=== PATIENT | male | born 1940 | race African-American/Black ===

== ENCOUNTER 2018-04-19 07:35 | Inpatient (IN) | payer MEDICARE, MEDICAID ==
[~2018-04-19] VITALS: Ht 180.3 cm; Wt 94.8 kg
[2018-04-19 07:35] VITALS: BP 142/69
[~2018-04-19 07:35] MED LIST: ALBUTEROL SULF8.5 GM INH; CALCIUM500 M1 PO; LACTULOSE10 GM/15 M PO; LASIX40 MG PO; LEVAQUIN750 MG PO; METOPROLOL TART25 MG PO; NEURONTIN300 MG PO; POTASSIUM CHLO20 ME1 PO; PROTONIX40 MG PO; REGLAN5 MG PO; SIMVASTATIN20 MG PO; TRAMADOL HCL50 MG PO; ZESTRIL5 MG PO
--- NOTE | 2018-04-19 07:35 | NUR ---
ED Nurse Note: brought in by RA27 from home due to altered mental status s/p seizure this mroning. Unwitnessed seizure and no family at the bedside. EMS and pt unable to provide further information regarding pt's past medical history and pt's current home medication. Pt is A/Ox1 to name. RA 97%. BS of 126. Seizure precaution applied. No s/s of distress.
[2018-04-19] MEDS ORDERED: Sodium Chloride 500ML 500 ML IV ONE (07:52)
[2018-04-19] MEDS ORDERED: levETIRAcetam 500mg/NS100ml 100 ML IVPB ONE (08:00)
--- NOTE | 2018-04-19 08:15 | NUR ---
ED Nurse Note: blood and urine sent down to the lab.
--- NOTE | 2018-04-19 08:18 | Emergency Room Report ---
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 It is unclear who the patient lives with I do not have any list of medications Patient here is confused and cannot provide medical history Paramedics reported seizure activity this morning Some confusion and patient was brought to the emergency room from home Here the patient denies any chest pain denies any fevers cannot tell me when the last time was when he had a seizure Allergies: Coded Allergies: No Known Allergies (Unverified , 01/09/12) Patient History Limited by: medical condition Past Medical History: see triage record Pertinent Family History: unable to obtain Reviewed Nursing Documentation: PMH: Agreed; PSxH: Agreed Nursing Documentation-PMH Past Medical History: No History, Except For Hx Cardiac Problems: Yes Hx Hypertension: Yes Hx COPD: Yes - emphysema Hx Cancer: No Hx Gastrointestinal Problems: No Hx Cerebrovascular Accident: Yes Review of Systems All Other Systems: limited - Other than the ones mentioned in the history of present illness all others are reviewed however they do stay limited due to the patient's mental status Physical Exam Vital Signs Date Time Temp Pulse Resp B/P (MAP) Pulse Ox O2 Delivery O2 Flow Rate FiO2 04/19/18 07:29 97.9 90 16 150/92 96 Room Air Sp02 EP Interpretation: reviewed, normal General Appearance: no apparent distress Head: normocephalic, atraumatic Eyes: bilateral eye PERRL, bilateral eye EOMI ENT: hearing grossly normal, normal pharynx Neck: supple Respiratory: lungs clear Cardiovascular #1: regular rate, rhythm, no edema Gastrointestinal: non tender, soft Musculoskeletal: normal inspection - Patient moves all extremities without focal deficit Neurologic: responsive - 2 verbal and physical stimuli, patient is confused, does not know why he is here, cannot provide medical history Skin: normal color, no rash Lymphatic: no adenopathy Medical Decision Making Diagnostic Impression: Primary Impression: Seizure disorder Additional Impression: Encephalopathy ER Course Multiple differentials considered Given the patient's prolonged postictal state and [place] medical history CT imaging was also obtained patient's blood work reveals some abnormal electrolytes patient is further hydrated Provided with antiepileptic medication and requires further inpatient care Labs Test 04/19/18 07:40 White Blood Count 4.3 K/UL (4.8-10.8) Red Blood Count 4.26 M/UL (4.70-6.10) Hemoglobin 13.3 G/DL (14.2-18.0) Hematocrit 39.8 % (42.0-52.0) Mean Corpuscular Volume 94 FL (80-99) Mean Corpuscular Hemoglobin 31.4 PG (27.0-31.0) Mean Corpuscular Hemoglobin Concent 33.5 G/DL (32.0-36.0) Red Cell Distribution Width 11.6 % (11.6-14.8) Platelet Count 173 K/UL (150-450) Mean Platelet Volume 6.9 FL (6.5-10.1) Neutrophils (%) (Auto) 49.3 % (45.0-75.0) Lymphocytes (%) (Auto) 40.8 % (20.0-45.0) Monocytes (%) (Auto) 6.6 % (1.0-10.0) Eosinophils (%) (Auto) 0.5 % (0.0-3.0) Basophils (%) (Auto) 2.8 % (0.0-2.0) Sodium Level 145 MMOL/L (136-145) Potassium Level 3.3 MMOL/L (3.5-5.1) Chloride Level 115 MMOL/L (98-107) Carbon Dioxide Level 18 MMOL/L (21-32) Anion Gap 12 mmol/L (5-15) Blood Urea Nitrogen 7 mg/dL (7-18) Creatinine 0.8 MG/DL (0.55-1.30) Estimat Glomerular Filtration Rate mL/min (>60) Glucose Level 97 MG/DL (74-106) Calcium Level 6.9 MG/DL (8.5-10.1) Total Bilirubin 0.5 MG/DL (0.2-1.0) Aspartate Amino Transf (AST/SGOT) 54 U/L (15-37) Alanine Aminotransferase (ALT/SGPT) 36 U/L (12-78) Alkaline Phosphatase 40 U/L (46-116) Total Creatine Kinase 229 U/L (26-308) Creatine Kinase MB 2.4 NG/ML (0.0-3.6) Creatine Kinase MB Relative Index 1.0 Troponin I 0.027 ng/mL (0.000-0.056) Total Protein 5.5 G/DL (6.4-8.2) Albumin 2.6 G/DL (3.4-5.0) Globulin 2.9 g/dL Albumin/Globulin Ratio 0.9 (1.0-2.7) Lipase 118 U/L (73-393) Valproic Acid (Depakene) Level < 3 MCG/ML (50-100) Rhythm Strip Diag. Results EP Interpretation: yes Rate: 80 Rhythm: NSR, no PVC's, no ectopy Chest X-Ray Diagnostic Results Chest X-Ray Diagnostic Results : Chest X-Ray Ordered: Yes # of Views/Limited/Complete: 1 View Indication: Chest Pain EP Interpretation: Yes Interpretation: no consolidation, no effusion, no pneumothorax, no acute cardiopulmonary disease - sternotomy wires Impression: No acute disease Electronically Signed by: Rickie Roberts DO CT/MRI/US Diagnostic Results CT/MRI/US Diagnostic Results : Impression CT head:IMPRESSION: 1. No evidence of intracranial hemorrhage. No mass effect or midline shift. 2. Remote left frontoparietal infarct. 3. Mild periventricular white matter hypodensities likely related to chronic small vessel disease changes. Last Vital Signs Date Time Temp Pulse Resp B/P (MAP) Pulse Ox O2 Delivery O2 Flow Rate FiO2 04/19/18 07:35 97.9 89 20 142/69 97 Room Air Status: improved Disposition: ADMITTED INPATIENT Condition: Serious Referrals: NOT CHOSEN IPA/,REFERRING (PCP) Rickie Roberts DO Apr 19, 2018 08:18
[2018-04-19 08:19] LABS: BASOPHILS % (AUTO) 2.8 % (0.0-2.0); EOSINOPHILS % (AUTO) 0.5 % (0.0-3.0); HEMATOCRIT 39.8 % (42.0-52.0); HEMOGLOBIN 13.3 G/DL (14.2-18.0); LYMPHOCYTES % (AUTO) 40.8 % (20.0-45.0); MEAN CORPUSCULAR VOLUME 94 FL (80-99); MONOCYTES % (AUTO) 6.6 % (1.0-10.0); NEUTROPHILS % (AUTO) 49.3 % (45.0-75.0); PLATELET COUNT 173 K/UL (150-450); RED BLOOD COUNT 4.26 M/UL (4.70-6.10); RED CELL DISTRIBUTION WIDTH 11.6 % (11.6-14.8); WHITE BLOOD COUNT 4.3 K/UL (4.8-10.8)
[2018-04-19 08:28] LABS: ANION GAP 12 mmol/L (5-15); BLOOD UREA NITROGEN 7 mg/dL (7-18); CALCIUM 6.9 MG/DL (8.5-10.1); CARBON DIOXIDE 18 MMOL/L (21-32); CHLORIDE 115 MMOL/L (98-107); CREATININE 0.8 MG/DL (0.55-1.30); POTASSIUM 3.3 MMOL/L (3.5-5.1); SODIUM 145 MMOL/L (136-145)
[2018-04-19 08:44] LABS: ALANINE AMINOTRANSFERASE 36 U/L (12-78); ALBUMIN 2.6 G/DL (3.4-5.0); ALBUMIN/GLOBULIN RATIO 0.9 (1.0-2.7); ALKALINE PHOSPHATASE 40 U/L (46-116); ASPARTATE AMINO TRANSFERASE 54 U/L (15-37); BILIRUBIN,TOTAL 0.5 MG/DL (0.2-1.0); CKMB 2.4 NG/ML (0.0-3.6); CREATINE KINASE 229 U/L (26-308)
--- NOTE | 2018-04-19 09:28 | NUR ---
ED Nurse Note: pt went down for CT. Pt's family member came to ER, Ángel Lawson, . Instructed pt's family member to provide pt's medication list and that pt will be admitted today, Ángel verbalized understanding.
[2018-04-19 09:30] VITALS: BP 133/65
--- NOTE | 2018-04-19 09:56 | NUR ---
ED Nurse Note:' telephone report given to KOBY Coates. Addendum: 04/19/18 at 1035 by [email or web address] ED Nurse Note:' telephone report given to KOBY Coates. No new order received regarding pt's k, endorsed to KOBY Coates.
--- NOTE | 2018-04-19 10:10 | NUR ---
TRANSFER TO FLOOR: Patient transferred to #[id number] as ordered via michelle with MARYJANE Vaca. Telephone report given to KOBY Coates in 4E. Belongings given to . Family and or S/O informed of transfer. No s/s of distress. PT is now A/ox4. VSS. Skin intact.
[2018-04-19 10:20] VITALS: BP 144/55
--- NOTE | 2018-04-19 10:44 | NUR ---
NURSE NOTES: received pt awake alert, aox3 w forgetfulness. no sob. denies pain. denies history of seizures. ambulatory unsteady gait. continent. sacral area clear. paged Dr Yoder for admission orders (spoke cristiano kee exchage john Lux) Addendum: 04/19/18 at 1608 by ABDIAZIZ SPENCE RN relayed to Dr Yoder re lactic acid and thc+, per no new orders.
--- NOTE | 2018-04-19 11:07 | Diagnostic Imaging Report ---
EXAM: CT Head Without Intravenous Contrast CLINICAL HISTORY: Seizures TECHNIQUE: Axial computed tomography images of the head/brain without intravenous contrast. CTDI is 70.53 mGy and DLP is 1485 mGy-cm. One or more of the following dose reduction techniques were used: automated exposure control, adjustment of the mA and/or kV according to patient size, use of iterative reconstruction technique. COMPARISON: No relevant prior studies available. FINDINGS: Brain: No evidence of intracranial hemorrhage. No mass effect or midline shift. Remote left frontoparietal infarct. Mild periventricular white matter hypodensities likely related to chronic small vessel disease changes. Incidental note of microcalcifications in bilateral basal ganglia. Ventricles: Unremarkable. No ventriculomegaly. Bones/joints: Unremarkable. No depressed skull fracture. Soft tissues: Unremarkable. Sinuses: Unremarkable as visualized. No acute sinusitis. Mastoid air cells: Unremarkable as visualized. No mastoid effusion. IMPRESSION: 1. No evidence of intracranial hemorrhage. No mass effect or midline shift. 2. Remote left frontoparietal infarct. 3. Mild periventricular white matter hypodensities likely related to chronic small vessel disease changes.
[2018-04-19 12:00] VITALS: BP 145/81
--- NOTE | 2018-04-19 14:47 | History and Physical ---
History of Present Illness General Date patient seen: Apr 19, 2018 Time patient seen: 14:38 Reason for Hospitalization: Seizure Present Illness HPI 77 yo male with h/o htn presents due complaints of possible seizure. Patient states his girl friend found him laying in bed and called paramedics. Patient is a very poor historian. Denies shaking, tongue biting, headache or vision changes, denies /GI incontinence. Patient was brought into the emergency with some confusion per documentation. Patient denies any cp or sob. States he feels fine. Denies any fevers/chills. Denies any hx of seizures. States he lives with his girl friend. social hx reviewed, denies smoking or alcohol use, admits to occasional marijuana use last used yesterday code status reviewed, full code past fam hx reviewed, denies any sig past fam hx Allergies: Coded Allergies: No Known Allergies (Unverified , 01/09/12) Medication History Scheduled Albuterol Sulfate* (Albuterol Sulfate Mdi*), 2 PUFF INH Q8HR Calcium Carbonate (Calcium), 500 MG PO BID, (Reported) Furosemide* (Lasix*), 40 MG PO DAILY, (Reported) Gabapentin (Neurontin), 300 MG PO QHS, (Reported) Levofloxacin* (Levaquin*), 750 MG PO DAILY Levofloxacin* (Levaquin*), 750 MG PO DAILY, (Reported) Lisinopril* (Zestril*), 5 MG PO DAILY, (Reported) Metoprolol Tartrate* (Metoprolol Tartrate*), 25 MG PO Q12HR, (Reported) Pantoprazole* (Protonix*), 40 MG PO DAILY, (Reported) Potassium Chloride* (K-Dur*), 20 MEQ PO DAILY, (Reported) Simvastatin (Zocor), 20 MG PO QHS, (Reported) Tramadol Hcl* (Ultram*), 50 MG PO TID, (Reported) Scheduled PRN Lactulose (Lactulose), 10 GM PO Q4HR PRN, (Reported) Metoclopramide Hcl* (Reglan*), 5 MG PO BID PRN, (Reported) Patient History Healthcare decision maker Resuscitation status Full Code Advanced Directive on File Review of Systems ROS Narrative 14 point ros reviewed and negative except for the above HPI Physical Exam General Appearance: WD/WN, no apparent distress, alert Lines, tubes and drains: peripheral HEENT: normocephalic, atraumatic, mucous membranes moist, PERRL Neck: non-tender, normal alignment, supple, normal inspection Respiratory/Chest: chest wall non-tender, lungs clear, normal breath sounds, no respiratory distress, no accessory muscle use Cardiovascular/Chest: normal peripheral pulses, normal rate, regular rhythm Abdomen: normal bowel sounds, non tender, soft, no organomegaly, no mass Extremities: normal range of motion, non-tender, normal inspection, no calf tenderness, normal capillary refill Skin Exam: normal pigmentation, warm/dry 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, no motor/sensory deficits, alert, oriented x 3, responsive, normal mood/affect Last 24 Hour Vital Signs Date Time Temp Pulse Resp B/P (MAP) Pulse Ox O2 Delivery O2 Flow Rate FiO2 04/19/18 12:20 Room Air 04/19/18 12:00 97.0 84 20 145/81 (102) 97 04/19/18 10:20 97.0 81 20 144/55 (84) 97 04/19/18 10:10 97.9 82 16 133/65 96 Room Air 04/19/18 09:30 82 16 133/65 96 Room Air 04/19/18 07:35 97.9 89 20 142/69 97 Room Air 04/19/18 07:35 89 20 Room Air 04/19/18 07:29 97.9 90 16 150/92 96 Room Air Laboratory Tests Test 04/19/18 07:40 04/19/18 13:05 White Blood Count 4.3 K/UL (4.8-10.8) L Red Blood Count 4.26 M/UL (4.70-6.10) L Hemoglobin 13.3 G/DL (14.2-18.0) L Hematocrit 39.8 % (42.0-52.0) L Mean Corpuscular Volume 94 FL (80-99) Mean Corpuscular Hemoglobin 31.4 PG (27.0-31.0) H Mean Corpuscular Hemoglobin Concent 33.5 G/DL (32.0-36.0) Red Cell Distribution Width 11.6 % (11.6-14.8) Platelet Count 173 K/UL (150-450) Mean Platelet Volume 6.9 FL (6.5-10.1) Neutrophils (%) (Auto) 49.3 % (45.0-75.0) Lymphocytes (%) (Auto) 40.8 % (20.0-45.0) Monocytes (%) (Auto) 6.6 % (1.0-10.0) Eosinophils (%) (Auto) 0.5 % (0.0-3.0) Basophils (%) (Auto) 2.8 % (0.0-2.0) H Sodium Level 145 MMOL/L (136-145) Potassium Level 3.3 MMOL/L (3.5-5.1) L Chloride Level 115 MMOL/L (98-107) H Carbon Dioxide Level 18 MMOL/L (21-32) L Anion Gap 12 mmol/L (5-15) Blood Urea Nitrogen 7 mg/dL (7-18) Creatinine 0.8 MG/DL (0.55-1.30) Estimat Glomerular Filtration Rate mL/min (>60) Glucose Level 97 MG/DL (74-106) Calcium Level 6.9 MG/DL (8.5-10.1) L Total Bilirubin 0.5 MG/DL (0.2-1.0) Aspartate Amino Transf (AST/SGOT) 54 U/L (15-37) H Alanine Aminotransferase (ALT/SGPT) 36 U/L (12-78) Alkaline Phosphatase 40 U/L (46-116) L Total Creatine Kinase 229 U/L (26-308) Creatine Kinase MB 2.4 NG/ML (0.0-3.6) Creatine Kinase MB Relative Index 1.0 Troponin I 0.027 ng/mL (0.000-0.056) Total Protein 5.5 G/DL (6.4-8.2) L Albumin 2.6 G/DL (3.4-5.0) L Globulin 2.9 g/dL Albumin/Globulin Ratio 0.9 (1.0-2.7) L Lipase 118 U/L (73-393) Valproic Acid (Depakene) Level < 3 MCG/ML (50-100) L Lactic Acid Level 2.20 mmol/L (0.4-2.0) H Magnesium Level 2.1 MG/DL (1.8-2.4) Height (Feet): 5 Height (Inches): 11.00 Weight (Pounds): 210 Medications Current Medications Medications (Trade) Dose Ordered Sig/Tyrese Route PRN Reason Start Time Stop Time Status Last Admin Dose Admin Acetaminophen (Tylenol) 650 mg Q4H PRN ORAL Mild Pain/Temp > 100.5 04/19/18 11:42 05/19/18 11:41 Atorvastatin Calcium (Lipitor) 10 mg BEDTIME ORAL 04/19/18 21:00 05/19/18 20:59 Calcium Carbonate (Tums) 500 mg BID ORAL 04/19/18 18:00 05/19/18 17:59 UNV Furosemide (Lasix) 40 mg DAILY ORAL 04/20/18 09:00 05/20/18 08:59 Gabapentin (Neurontin) 300 mg BEDTIME ORAL 04/19/18 21:00 05/19/18 20:59 Heparin Sodium (Porcine) (Heparin 5000 units/ml) 5,000 units EVERY 12 HOURS SUBQ 04/19/18 21:00 05/19/18 20:59 Levetiracetam (Keppra) 500 mg BID ORAL 04/19/18 18:00 05/19/18 17:59 Lisinopril (Zestril) 5 mg DAILY ORAL 04/20/18 09:00 05/20/18 08:59 Metoprolol Tartrate (Lopressor) 25 mg Q12HR ORAL 04/19/18 21:00 05/19/18 20:59 Pantoprazole (Protonix) 40 mg DAILY ORAL 04/20/18 09:00 05/20/18 08:59 Potassium Chloride 100 ml @ 100 mls/hr Q1H IVPB 04/19/18 12:30 04/19/18 16:29 04/19/18 12:46 Potassium Chloride (K-Dur) 40 meq ONCE ORAL 04/19/18 14:15 04/19/18 15:15 Assessment/Plan Status: stable Assessment/Plan #Seizure - fall precautions - keppra 500mg bid - q4hr neuro checks - monitor closely - replenish electrolytes #Uncontrolled HTN - bp 140s/80s - resume metroprolol and lisinopril - adjust accordingly - unsure of true med compliance #Hypokalemia - K 3.3 - replenish - check mg levels #Dehydration #Elevated Lactic Acid - LA 2.2 - recheck LA - IVF - likely due to seizure and dehydration #Marijuana use - educated on marijuana cessation for over 15 mins DVT Prophylaxis: SCD, HSQ Diet: regular Code Status: Full Hospital Classification Declaration: Based on this initial evaluation, and depending on the patient's clinical course, I anticipate that this patient will require hospitalization for 2-3 days for seizures and uncontrolled htn, neuro checks and close hemodynamic monitoring and close respiratory/hemodynamic monitoring. Disposition: Once the patient is stable to leave the hospital, I anticipate the patient will likely be discharged to the following environment: home with HH vs SNF I spent 65 minutes on this patient's case, and 40 minutes were dedicated to counseling and/or care coordination. Discussed with patient/family, nursing staff, SW/CM regarding clinical status, treatment course, and disposition planning. Time of note may not reflect time of encounter. ----- Date of Discussion: 04/19/18 A [id number] discussion with the patient regarding the patient's advanced care planning took place during this hospitalization on the above date. The discussion included the explanation and discussion of advance directives and associated forms/documents, as well as the patient's current code status. We also discussed at length the patient's medical conditions (both acute and chronic), general prognosis, treatment options, and goals of care. The following summarizes the discussion: Advance Care Planning/Goals of Care: - Will attempt to fill out an AD and/or POLST with the patient prior to discharge, if not already completed - Continue current evaluation and management of any acute and chronic medical issues - Will continue to support the patient/family - Will continue to discuss both short- and long-term goals of care DPOA-HC/Surrogate Decision Maker: None currently appointed Code Status: Full Code AD Forms/Documents Completed: Deferred A total of 35 minutes was spent on this discussion, including counseling, answering questions, and completing, if any, pertinent advanced care planning forms/documents. Anna Yoder MD Apr 19, 2018 14:47
[2018-04-19 16:00] VITALS: BP 139/82
[2018-04-19] MEDS ORDERED: Tums 500mg ORAL SCH (18:00)
--- NOTE | 2018-04-19 19:18 | NUR ---
NURSE NOTES: rn asked Dr Woods if accepting pts per md not at this time. Dr Yoder is aware of this as he was also at the nursing station and asked Dr Woods himself
--- NOTE | 2018-04-19 19:30 | NUR ---
HAND-OFF: Report given to SIRI HWALEN.
[2018-04-19 20:00] VITALS: BP 108/63
--- NOTE | 2018-04-19 20:00 | NUR ---
NURSE NOTES: Patient received in bed, awake, oriented x3. IV on LAC intact. Patient gait unsteady and patient is a little impulsive. Patient transferred to [facility], bed alarm on. Instructed to call for assistance prior to getting up, verbalized understanding. Call light within reach. Will continue to monitor.
[2018-04-19] MEDS: Heparin 5000 units/ml inj SUBQ SCH (20:16)
[2018-04-19] MEDS: Metoprolol 25mg tab ORAL SCH (20:16)
--- NOTE | 2018-04-19 22:30 | NUR ---
NURSE NOTES: Patient asking for his inhaler puff. NOted that mingo was receiving 2puffs of 3-4hrs PRN of proventil MDI from home. Spoke with Dr. Yoder and received order to continue home medication and PRN duoneb. Patient denied shortness of breath at this time. No apparent respiratory distress at this time. Will continue to monitor.
[2018-04-19] MEDS ORDERED: Albuterol/Ipratropium 3ml neb HHN PRN (22:45)
[2018-04-19] MEDS ORDERED: Albuterol 90mcg Inhaler 8gm INH PRN (22:45)
[2018-04-20] VITALS: BP 148/74
[2018-04-20 04:00] VITALS: BP 139/72
[2018-04-20 06:37] LABS: BASOPHILS % (AUTO) 1.9 % (0.0-2.0); EOSINOPHILS % (AUTO) 0.8 % (0.0-3.0); HEMATOCRIT 37.1 % (42.0-52.0); HEMOGLOBIN 12.5 G/DL (14.2-18.0); LYMPHOCYTES % (AUTO) 37.8 % (20.0-45.0); MEAN CORPUSCULAR VOLUME 93 FL (80-99); MONOCYTES % (AUTO) 8.4 % (1.0-10.0); NEUTROPHILS % (AUTO) 51.1 % (45.0-75.0); PLATELET COUNT 176 K/UL (150-450); RED BLOOD COUNT 3.97 M/UL (4.70-6.10); RED CELL DISTRIBUTION WIDTH 11.5 % (11.6-14.8); WHITE BLOOD COUNT 3.7 K/UL (4.8-10.8)
[2018-04-20 06:52] LABS: ANION GAP 8 mmol/L (5-15); BLOOD UREA NITROGEN 10 mg/dL (7-18); CALCIUM 9.1 MG/DL (8.5-10.1); CARBON DIOXIDE 25 MMOL/L (21-32); CHLORIDE 108 MMOL/L (98-107); CREATININE 1.1 MG/DL (0.55-1.30); SODIUM 141 MMOL/L (136-145)
--- NOTE | 2018-04-20 07:30 | NUR ---
HAND-OFF: Report given to Cece WHALEN.
[2018-04-20 08:00] VITALS: BP 123/77
[2018-04-20] MEDS ORDERED: KEPPRA500 MG ORAL (08:26)
--- NOTE | 2018-04-20 08:30 | Discharge Summary ---
Discharge Summary Hospital Course Date of Admission Apr 19, 2018 at 08:36 Date of Discharge Admitting Diagnosis prolonged postictal state, encephalopathy HPI Juan J Palacios is a 77 year old male who was admitted on Apr 19, 2018 at 08: 36 for Prolonged Postictal State,Encephalopathy 77 yo male with h/o htn presents due complaints of possible seizure. Patient states his girl friend found him laying in bed and called paramedics. Patient is a very poor historian. Denies shaking, tongue biting, headache or vision changes, denies /GI incontinence. Patient was brought into the emergency with some confusion per documentation. Patient denies any cp or sob. States he feels fine. Denies any fevers/chills. Denies any hx of seizures. States he lives with his girl friend. started on keppra has remained stable overnight on keppra and home meds. vitals remained stable denies any complaints he is a poor historian, discussed at length with patient on importance of medication compliance and outpt pcp and neurology f/u dc home with keppra Physical Exam: General Appearance: WD/WN, no apparent distress, alert Lines, tubes and drains: peripheral HEENT: normocephalic, atraumatic, mucous membranes moist, PERRL Neck: non-tender, normal alignment, supple, normal inspection Respiratory/Chest: chest wall non-tender, lungs clear, normal breath sounds, no respiratory distress, no accessory muscle use Cardiovascular/Chest: normal peripheral pulses, normal rate, regular rhythm Abdomen: normal bowel sounds, non tender, soft, no organomegaly, no mass Extremities: normal range of motion, non-tender, normal inspection, no calf tenderness, normal capillary refill Skin Exam: normal pigmentation, warm/dry 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, no motor/sensory deficits, alert, oriented x 3, responsive, normal mood/affect Hospital Course #Seizure - fall precautions - keppra 500mg bid - stable #Uncontrolled HTN - bp 140s/80s - resume metroprolol and lisinopril - adjust accordingly - stable #Hypokalemia - K 3.3 on admit - replenish #Dehydration #Elevated Lactic Acid - LA 2.2 - recheck LA, resolved - IVF - likely due to seizure and dehydration #Marijuana use - educated on marijuana cessation for over 15 mins Diet: regular Code Status: Full Hospital Classification Declaration: Based on this initial evaluation, and depending on the patient's clinical course, I anticipate that this patient will require hospitalization for 2-3 days for seizures and uncontrolled htn, neuro checks and close hemodynamic monitoring and close respiratory/hemodynamic monitoring. Disposition: Once the patient is stable to leave the hospital, I anticipate the patient will likely be discharged to the following environment: home with HH vs SNF I spent over 40 minutes on this patient's case, discharge/dispo planning and/ or care coordination. Discussed with patient/family, nursing staff, SW/CM regarding clinical status, treatment course, and disposition planning. Time of note may not reflect time of encounter. ----- Date of Discussion: 04/19/18 A [id number] discussion with the patient regarding the patient's advanced care planning took place during this hospitalization on the above date. The discussion included the explanation and discussion of advance directives and associated forms/documents, as well as the patient's current code status. We also discussed at length the patient's medical conditions (both acute and chronic), general prognosis, treatment options, and goals of care. The following summarizes the discussion: Advance Care Planning/Goals of Care: - Will attempt to fill out an AD and/or POLST with the patient prior to discharge, if not already completed - Continue current evaluation and management of any acute and chronic medical issues - Will continue to support the patient/family - Will continue to discuss both short- and long-term goals of care DPOA-HC/Surrogate Decision Maker: None currently appointed Code Status: Full Code AD Forms/Documents Completed: Deferred A total of 35 minutes was spent on this discussion, including counseling, answering questions, and completing, if any, pertinent advanced care planning forms/documents. Discharge Medications New Medications: Levetiracetam (Keppra) 250 Mg Tablet 500 MG ORAL BID for 30 Days, #60 TAB Continued Medications: Albuterol Sulfate* (Albuterol Sulfate Mdi*) 8.5 Gm Hfa.aer.ad 2 PUFF INH Q8HR, #1 INH 0 Refills Take 2 puffs every 3 to 4 hours as needed for wheezing or shortness of breath. Calcium Carbonate (Calcium) 500 Mg Tab.chew 500 MG PO BID (This prescription has been renewed) Furosemide* (Lasix*) 40 Mg Tablet 40 MG PO DAILY, #10 TAB (This prescription has been renewed) Take 1 tablet by mouth every day. Gabapentin (Neurontin) 300 Mg Cap 300 MG PO QHS, #15 CAP (This prescription has been renewed) Take 1 capsule by mouth three times a day. Lactulose (Lactulose) 10 Gm/15 Ml Solution 10 GM PO Q4HR PRN (This prescription has been renewed) Lisinopril* (Zestril*) 5 Mg Tablet 5 MG PO DAILY, #10 TAB (This prescription has been renewed) Take 1 tablet by mouth every day. Metoclopramide Hcl* (Reglan*) 5 Mg Tablet 5 MG PO BID PRN, #20 TAB (This prescription has been renewed) Take 1 tablet by mouth every 6 hours as needed for nausea. Metoprolol Tartrate* (Metoprolol Tartrate*) 25 Mg Tablet 25 MG PO Q12HR (This prescription has been renewed) Pantoprazole* (Protonix*) 40 Mg Tablet.dr 40 MG PO DAILY, #10 TAB (This prescription has been renewed) Take 1 tablet by mouth every 12 hours. Potassium Chloride* (K-Dur*) 20 Meq Tab.er.prt 20 MEQ PO DAILY, #7 TAB (This prescription has been renewed) Take 1 tablet by mouth daily. Simvastatin (Zocor) 20 Mg Tablet 20 MG PO QHS (This prescription has been renewed) Tramadol Hcl* (Ultram*) 50 Mg Tablet 50 MG PO TID, #15 TAB (This prescription has been renewed) Take 1 tablet by mouth every 6 hours as needed for pain. Discontinued Medications: Levofloxacin* (Levaquin*) 750 Mg Tablet 750 MG PO DAILY, #10 TAB 0 Refills Take 1 tablet by mouth daily for 7 days Levofloxacin* (Levaquin*) 750 Mg Tablet 750 MG PO DAILY, #7 TAB Take 1 tablet by mouth daily for 7 days Discharge Condition Upon Discharge: stable Discharge Disposition Patient was discharged to home Discharge Diagnoses: (1) Seizure disorder (2) Epileptic seizure, generalized (3) Uncontrolled hypertension Anna Yoder MD Apr 20, 2018 08:30
[2018-04-20 08:50] VITALS: BP 123/77
[2018-04-20] MEDS: Metoprolol 25mg tab ORAL SCH (08:50)
[2018-04-20] MEDS: Heparin 5000 units/ml inj SUBQ SCH (08:51)
[2018-04-20] MEDS ORDERED: Furosemide 40mg tab ORAL SCH (09:00)
[2018-04-20] MEDS ORDERED: Lisinopril 2.5mg tab ORAL SCH (09:00)
--- NOTE | 2018-04-20 09:11 | Diagnostic Imaging Report ---
Indication: Chest pain Comparison: 01/24/2012 A single view chest radiograph was obtained. Findings: Sternotomy noted. Minimal left basal atelectasis versus scarring noted. No definite infiltrate or pulmonary vascular congestion identified. The heart is enlarged. The aorta is mildly enlarged consistent with atherosclerotic vascular disease. The bones are osteopenic. Impression: No acute disease
--- NOTE | 2018-04-20 09:13 | NUR ---
NURSE NOTES: 0800 Received patient alert, ambulatory. with no sob. Denies any pain. IV line intact. Denies any pain. Will continue to monitor. Seen by Dr. Yoder. With DC home order. noted.
--- NOTE | 2018-04-20 11:37 | Consultation ---
History of Present Illness General Chief Complaint: Seizure Present Illness HPI 77 yo male with hx of mmp, including seizures and htn presents due complaints of possible seizure. Patient's girl friend found him laying in bed and called paramedics. During the evaluation the pt was a poor historian. He appeared less confused than the first day, the pt knew his dx. the pt was not sure if he was taking his meds regularly. the pt is not at imminent dts. It appears the confusion was due to post ictal. the pt is stable/ Allergies: Coded Allergies: No Known Allergies (Unverified , 01/09/12) Medication History Scheduled Albuterol Sulfate* (Albuterol Sulfate Mdi*), 2 PUFF INH Q8HR Calcium Carbonate (Calcium), 500 MG PO BID, (Reported) Furosemide* (Lasix*), 40 MG PO DAILY, (Reported) Gabapentin (Neurontin), 300 MG PO QHS, (Reported) Levetiracetam (Keppra), 500 MG ORAL BID Lisinopril* (Zestril*), 5 MG PO DAILY, (Reported) Metoprolol Tartrate* (Metoprolol Tartrate*), 25 MG PO Q12HR, (Reported) Pantoprazole* (Protonix*), 40 MG PO DAILY, (Reported) Potassium Chloride* (K-Dur*), 20 MEQ PO DAILY, (Reported) Simvastatin (Zocor), 20 MG PO QHS, (Reported) Tramadol Hcl* (Ultram*), 50 MG PO TID, (Reported) Scheduled PRN Lactulose (Lactulose), 10 GM PO Q4HR PRN, (Reported) Metoclopramide Hcl* (Reglan*), 5 MG PO BID PRN, (Reported) Discontinued Medications Levofloxacin* (Levaquin*), 750 MG PO DAILY Discontinued Reason: MD discontinued med Levofloxacin* (Levaquin*), 750 MG PO DAILY, (Reported) Discontinued Reason: MD discontinued med Patient History Limited by: medical condition History Provided By: Patient, Medical Record, PMD Healthcare decision maker Resuscitation status Full Code Advanced Directive on File Past Medical/Surgical History Past Medical/Surgical History: (1) Epileptic seizure, generalized (2) Encephalopathy (3) Seizure disorder (4) Uncontrolled hypertension Review of Systems Psychiatric: Reports: anxiety Physical Exam General Appearance: alert, confused - oriented to self and situation Last 24 Hour Vital Signs Date Time Temp Pulse Resp B/P (MAP) Pulse Ox O2 Delivery O2 Flow Rate FiO2 04/20/18 09:00 Room Air 04/20/18 08:50 95 123/77 04/20/18 08:50 123/77 04/20/18 08:00 97.0 95 19 123/77 (92) 96 04/20/18 04:00 97.2 70 19 139/72 (94) 96 04/20/18 00:00 98.6 74 18 148/74 (98) 96 04/19/18 21:00 Room Air 04/19/18 20:16 79 108/63 04/19/18 20:00 99.1 79 16 108/63 (78) 97 04/19/18 16:00 98.1 83 20 139/82 (101) 97 04/19/18 12:20 Room Air 04/19/18 12:00 97.0 84 20 145/81 (102) 97 Intake and Output 04/19/18 04/20/18 18:59 06:59 Intake Total 1140 ml Balance 1140 ml Intake Oral 540 ml IV Total 600 ml # Voids 4 3 # Bowel Movements 1 1 Laboratory Tests Test 04/19/18 13:05 04/19/18 14:26 04/19/18 15:50 04/20/18 05:10 Lactic Acid Level 2.20 mmol/L (0.4-2.0) H 2.00 mmol/L (0.66-2.22) Magnesium Level 2.1 MG/DL (1.8-2.4) 2.2 MG/DL (1.8-2.4) Urine Opiates Screen Negative (NEGATIVE) Urine Barbiturates Screen Negative (NEGATIVE) Phencyclidine (PCP) Screen Negative (NEGATIVE) Urine Amphetamines Screen Negative (NEGATIVE) Urine Benzodiazepines Screen Negative (NEGATIVE) Urine Cocaine Screen Negative (NEGATIVE) Urine Marijuana (THC) Screen Positive (NEGATIVE) H White Blood Count 3.7 K/UL (4.8-10.8) L Red Blood Count 3.97 M/UL (4.70-6.10) L Hemoglobin 12.5 G/DL (14.2-18.0) L Hematocrit 37.1 % (42.0-52.0) L Mean Corpuscular Volume 93 FL (80-99) Mean Corpuscular Hemoglobin 31.5 PG (27.0-31.0) H Mean Corpuscular Hemoglobin Concent 33.8 G/DL (32.0-36.0) Red Cell Distribution Width 11.5 % (11.6-14.8) L Platelet Count 176 K/UL (150-450) Mean Platelet Volume 7.6 FL (6.5-10.1) Neutrophils (%) (Auto) 51.1 % (45.0-75.0) Lymphocytes (%) (Auto) 37.8 % (20.0-45.0) Monocytes (%) (Auto) 8.4 % (1.0-10.0) Eosinophils (%) (Auto) 0.8 % (0.0-3.0) Basophils (%) (Auto) 1.9 % (0.0-2.0) Sodium Level 141 MMOL/L (136-145) Potassium Level 4.0 MMOL/L (3.5-5.1) Chloride Level 108 MMOL/L (98-107) H Carbon Dioxide Level 25 MMOL/L (21-32) Anion Gap 8 mmol/L (5-15) Blood Urea Nitrogen 10 mg/dL (7-18) Creatinine 1.1 MG/DL (0.55-1.30) Estimat Glomerular Filtration Rate mL/min (>60) Glucose Level 148 MG/DL (74-106) H Calcium Level 9.1 MG/DL (8.5-10.1) # Height (Feet): 5 Height (Inches): 11.00 Weight (Pounds): 209 Medications Current Medications Medications (Trade) Dose Ordered Sig/Tyrese Route PRN Reason Start Time Stop Time Status Last Admin Dose Admin Acetaminophen (Tylenol) 650 mg Q4H PRN ORAL Mild Pain/Temp > 100.5 04/19/18 11:42 05/19/18 11:41 Albuterol Sulfate (Proventil MDI) 2 puff Q4H PRN INH Shortness of Breath 04/19/18 22:45 05/19/18 22:44 Albuterol/ Ipratropium (Albuterol/ Ipratropium) 3 ml Q4H PRN HHN Shortness of Breath 04/19/18 22:45 04/24/18 22:44 Atorvastatin Calcium (Lipitor) 10 mg BEDTIME ORAL 04/19/18 21:00 05/19/18 20:59 04/19/18 20:07 Calcium Carbonate (Os-Ja) 1,250 mg BID ORAL 04/19/18 18:00 05/19/18 17:59 04/20/18 08:51 Furosemide (Lasix) 40 mg DAILY ORAL 04/20/18 09:00 05/20/18 08:59 04/20/18 08:51 Gabapentin (Neurontin) 300 mg BEDTIME ORAL 04/19/18 21:00 05/19/18 20:59 04/19/18 20:08 Heparin Sodium (Porcine) (Heparin 5000 units/ml) 5,000 units EVERY 12 HOURS SUBQ 04/19/18 21:00 05/19/18 20:59 04/19/18 20:16 Levetiracetam (Keppra) 500 mg BID ORAL 04/19/18 18:00 05/19/18 17:59 04/20/18 08:51 Lisinopril (Zestril) 5 mg DAILY ORAL 04/20/18 09:00 05/20/18 08:59 04/20/18 08:50 Metoprolol Tartrate (Lopressor) 25 mg Q12HR ORAL 04/19/18 21:00 05/19/18 20:59 04/20/18 08:50 Pantoprazole (Protonix) 40 mg DAILY ORAL 04/20/18 09:00 05/20/18 08:59 04/20/18 08:50 Assessment/Plan Problem List: (1) Metabolic encephalopathy ICD Codes: G93.41 - Metabolic encephalopathy SNOMED: [id number] Assessment/Plan no meds at this time explain and educated the importance of taking meds/ the pt may be discharged when medically cleared Aggie Knox MD Apr 20, 2018 11:37
--- NOTE | 2018-04-20 11:53 | NUR ---
NURSE NOTES: patient with discharge to home order. per Dr. Yoder patient pharmacy contacted for medications. meds avail. Son picked up patient. IV removed. accompanied patient to lobby. Belongings with patient. DC paperwork signed by son.
== END 2018-04-20 12:00 | disposition home or self-care (01) | DRG 101 ==
LOC: EDBD 07:35 → EMR 07:50 → EDBEDREQ 08:08 → 4E 08:36 → EDBEDREQ 09:23 → 4E 22:24
DX: G40.409 Other generalized epilepsy and epileptic syndromes, not intractable, without status epilepticus (principal); G93.40 Encephalopathy, unspecified; I10 Essential (primary) hypertension; E87.6 Hypokalemia; E86.0 Dehydration; F12.90 Cannabis use, unspecified, uncomplicated
CPT/HCPCS: 36415; 70450; 71045; 80048; 80053; 80164; 80299; 80307; 82550; 82553; 83605; 83690; 83735; 84484; 85025; 93005; 96374; 99285; J8499